=== PATIENT | female | born 1955 | race Caucasian/White ===

== ENCOUNTER 2020-09-28 10:53 | Emergency (ER) | payer MEDICARE, OTHER ==
[~2020-09-28] VITALS: Ht 165.1 cm; Wt 67.6 kg
[2020-09-28] MEDS ORDERED: METFORMIN HCL500 M2 PO (11:11)
[2020-09-28] MEDS ORDERED: SIMVASTATIN10 MG PO (11:12)
[2020-09-28] MEDS ORDERED: ESCITALOPRAM OXA5 MG PO (11:12)
[2020-09-28] MEDS ORDERED: PREDNISONE20 MG PO (14:07)
== END 2020-09-28 14:26 | disposition home or self-care (01) ==
LOC: ED 10:53
DX: J44.1 Chronic obstructive pulmonary disease with (acute) exacerbation (principal); E78.00 Pure hypercholesterolemia, unspecified; F17.200 Nicotine dependence, unspecified, uncomplicated; Z79.899 Other long term (current) drug therapy; Z79.84 Long term (current) use of oral hypoglycemic drugs; Z20.822 Contact with and (suspected) exposure to COVID-19
CPT/HCPCS: 71045; 80053; 83735; 84484; 85025; 93005; 93010; 94640; 96374; 99285-25; C9803; J1100; U0003

== ENCOUNTER 2021-07-17 22:48 | Emergency (ER) | payer MEDICARE, OTHER ==
[~2021-07-17] VITALS: Ht 165.1 cm; Wt 67.6 kg
[~2021-07-17 22:48] MED LIST: ESCITALOPRAM OXA5 MG PO; METFORMIN HCL500 M2 PO; PREDNISONE20 MG PO; SIMVASTATIN10 MG PO
--- OUTSIDE RECORDS SUMMARY | 2021-07-17 22:50 | XMS ---
PreManage Notification: BILLY HOWELL Security Actuarial Director Events No recent Security Events currently on file CRITERIA MET - [facility] Physician Hand Edger 01/09/2015-Current PHONE: Unknown Pavel has no Care Guidelines for this patient. Blaze VISIT COUNT (12 MO.) 2 [facility] TOTAL 2 NOTE: Visits indicate total known visits. ED/UCC VISIT TRACKING (12 MO.) 07/17/2021 22:49 [facility] [place] TYPE: Emergency COMPLAINT: - SOB,COLD SYMPTOMS, COUGH 09/28/2020 10:[address] [facility] [place] TYPE: Emergency COMPLAINT: - SOB, CONGESTION DIAGNOSES: - Chronic obstructive pulmonary disease with (acute) exacerbation - Other technician terminal and repeater (current) drug therapy - Shortness of breath - Pure hypercholesterolemia, unspecified - intermediate school teacher (current) use of oral hypoglycemic drugs - Nicotine dependence, unspecified, uncomplicated INPATIENT VISIT TRACKING (12 MO.) No inpatient visits to display in this time frame [email or web address]
== END 2021-07-18 00:04 | disposition home or self-care (01) ==
LOC: ED 22:48
DX: J44.1 Chronic obstructive pulmonary disease with (acute) exacerbation (principal); E78.00 Pure hypercholesterolemia, unspecified; F17.200 Nicotine dependence, unspecified, uncomplicated; Z79.84 Long term (current) use of oral hypoglycemic drugs; Z79.899 Other long term (current) drug therapy; Z79.52 Long term (current) use of systemic steroids; Z20.822 Contact with and (suspected) exposure to COVID-19
CPT/HCPCS: 71046; 87502; 99283-25; C9803; U0003

== ENCOUNTER 2022-02-08 12:54 | Emergency (ER) | payer MEDICARE, OTHER ==
[~2022-02-08] VITALS: Ht 165.1 cm; Wt 67.6 kg
--- OUTSIDE RECORDS SUMMARY | 2022-02-08 12:58 | XMS ---
PreManage Notification: BILLY HOWELL Security Financial Services Internship Events No recent Security Events currently on file CRITERIA MET - [place] [facility] Physician Caseworker Protective Services 01/09/2015-Current PHONE: Unknown Pavel has no Care Guidelines for this patient. ECodey VISIT COUNT (12 MO.) [address] [facility] [facility] TOTAL 3 NOTE: Visits indicate total known visits. ED/UCC VISIT TRACKING (12 MO.) 02/08/2022 12:55 [facility] [place] TYPE: Emergency COMPLAINT: - LOW O2 10/19/2021 13:52 [facility] [place] TYPE: Emergency DIAGNOSES: - Hypoxemia - Emphysema, unspecified - fall - Anterior dislocation of right humerus, initial encounter 07/17/2021 22:49 [facility] [place] TYPE: Emergency COMPLAINT: - SOB,COLD SYMPTOMS, COUGH DIAGNOSES: - Nicotine dependence, unspecified, uncomplicated - Contact with and (suspected) exposure to COVID-19 - Pure hypercholesterolemia, unspecified - price checker (current) use of oral hypoglycemic drugs - Chronic obstructive pulmonary disease with (acute) exacerbation - Cough, unspecified - intermediate (current) use of systemic steroids - Other chief cruiser (current) drug therapy INPATIENT VISIT TRACKING (12 MO.) No inpatient visits to display in this time frame [email or web address]
[2022-02-08] MEDS ORDERED: LISINOPRIL10 MG PO (15:06)
[2022-02-08] MEDS ORDERED: VENTOLIN HFA18 GM INH (15:06)
[2022-02-08] MEDS ORDERED: PREDNISONE20 MG PO (16:10)
== END 2022-02-08 16:31 | disposition home or self-care (01) ==
LOC: ED 12:54
DX: J44.1 Chronic obstructive pulmonary disease with (acute) exacerbation (principal); J10.1 Influenza due to other identified influenza virus with other respiratory manifestations; R73.03 Prediabetes; F17.200 Nicotine dependence, unspecified, uncomplicated; Z20.822 Contact with and (suspected) exposure to COVID-19; Z79.899 Other long term (current) drug therapy; Z79.84 Long term (current) use of oral hypoglycemic drugs
CPT/HCPCS: 71046; 87502; 94640; 99285-25; A9270; J7512; U0003

== ENCOUNTER 2022-10-21 13:23 | Emergency (ER) | payer MEDICARE, OTHER ==
[~2022-10-21] VITALS: Ht 165.1 cm; Wt 67.6 kg
[~2022-10-21 13:23] MED LIST changes: +LISINOPRIL10 MG PO; +VENTOLIN HFA18 GM INH
--- OUTSIDE RECORDS SUMMARY | 2022-10-21 13:26 | XMS ---
PreManage Notification: BILLY HOWELL Security Agricultural Extension Specialist Events No recent Security Events currently on file CRITERIA MET - [facility] Physician Mold Cleaning And Storage Supervisor 01/09/2015-Current PHONE: Unknown Pavel has no Care Guidelines for this patient. Blaze VISIT COUNT (12 MO.) 2 [facility] TOTAL 2 NOTE: Visits indicate total known visits. ED/UCC VISIT TRACKING (12 MO.) 10/21/2022 13:[address] [facility] [place] TYPE: Emergency COMPLAINT: - ABD PAIN, NAUSEA, DIARRHEA, UNABLE TO EAT 02/08/2022 12:[address] [facility] [place] TYPE: Emergency COMPLAINT: - LOW O2 DIAGNOSES: - Chronic obstructive pulmonary disease with (acute) exacerbation - Contact with and (suspected) exposure to COVID-19 - Cough, unspecified - Influenza due to other identified influenza virus with other respiratory manifestations - long term care phlebotomist (current) use of oral hypoglycemic drugs - Nicotine dependence, unspecified, uncomplicated - Other group home (current) drug therapy - Prediabetes INPATIENT VISIT TRACKING (12 MO.) No inpatient visits to display in this time frame [email or web address]
[2022-10-21 13:54] LABS: BASOPHILS 0.5 % (0-2); EOSINOPHILS 0.7 % (0-6); HEMATOCRIT 42.9 % (35.0-50.0); HEMOGLOBIN 14.8 g/dL (12.0-18.0); LYMPHOCYTES 27.2 % (24-44); MCH 30.8 (27-36); MCHC 34.5 g/dl (30-36); MCV 89.3 fl (81-99); MONOCYTES 4.6 % (0-12); PLATELET COUNT 222 K/uL (140-440); RBC 4.81 M/ul (4.3-5.7); RDW 13.5 (10.5-15.0)
[2022-10-21 14:05] LABS: ALBUMIN 3.7 g/dL (3.4-5.0); ALBUMIN/GLOBULIN RATIO 1.16 (1.1-2.4); ANION GAP 13.8 (7-21); BILIRUBIN, TOTAL 0.4 ng/dL (0.2-1.0); BUN/CREATININE RATIO 7.14 (6.0-28.6); CALCIUM 8.5 mg/dL (8.5-10.1); CREATININE, SERUM 0.84 mg/dL (0.55-1.02); POTASSIUM 3.8 mmol/L (3.5-5.1); PROTEIN, TOTAL 6.9 g/dL (6.4-8.2)
[2022-10-21 14:16] LABS: BILIRUBIN, URINE NEGATIVE (negative); BLOOD/HGB, URINE NEGATIVE (Negative); KETONE, URINE TRACE (Negative); LEUK ESTERASE, URINE NEGATIVE (negative); NITRITE, URINE NEGATIVE (negative); PH, URINE 5.5 (5-7)
[2022-10-21 14:24] LABS: BACTERIA, URINE RARE /hpf (negative); CASTS, URINE NONE SEEN \\lpf; COLLECTION TYPE, URINE CLEAN CATCH; CRYSTALS, URINE NONE SEEN (0-1+)
[2022-10-21 14:25] LABS: EPITHELIAL CELLS, URINE SQUAMOUS 1+ /lpf (0-1+); REFLEX CULTURE, URINE Yes (No)
[2022-10-21 16:22] VITALS: BP 152/94
== END 2022-10-21 16:22 | disposition home or self-care (01) ==
LOC: ED 13:23
PROVIDERS: Emergency Medicine
DX: N13.2 Hydronephrosis with renal and ureteral calculous obstruction (principal); E78.00 Pure hypercholesterolemia, unspecified; F17.200 Nicotine dependence, unspecified, uncomplicated; Z79.52 Long term (current) use of systemic steroids; R73.03 Prediabetes; Z79.84 Long term (current) use of oral hypoglycemic drugs
CPT/HCPCS: 36415; 74176; 80053; 81001; 83690; 85025; 87088; 96374; 99284-25; J2405

== ENCOUNTER 2022-10-29 10:54 | Emergency (ER) | payer MEDICARE, OTHER ==
[~2022-10-29] VITALS: Ht 165.1 cm; Wt 68.0 kg
[~2022-10-29 10:54] MED LIST changes: +HYDROCODON-ACE1 EA10 PO; +ONDANSETRON ODT4 MG PO
--- OUTSIDE RECORDS SUMMARY | 2022-10-29 10:56 | XMS ---
PreManage Notification: BILLY HOWELL Security Decorator Consultant Events No recent Security Events currently on file CRITERIA MET - [facility] - 2 Visits in 30 Days [facility] Physician Project Estimator 01/09/2015-Current PHONE: Unknown Pavel has no Care Guidelines for this patient. ECodey VISIT COUNT (12 MO.) [address] [place] [address] TOTAL 4 NOTE: Visits indicate total known visits. ED/UCC VISIT TRACKING (12 MO.) 10/29/2022 10:[address] [facility] [place] TYPE: Emergency COMPLAINT: - CHEST PAIN 10/28/2022 07:[address] [facility] [place] TYPE: Emergency COMPLAINT: - R FLANK PAIN, VOMITING 10/21/2022 13:[address] [facility] [place] TYPE: Emergency COMPLAINT: - ABD PAIN, NAUSEA, DIARRHEA, UNABLE TO EAT DIAGNOSES: - Hydronephrosis with renal and ureteral calculous obstruction - predatory animal exterminator (current) use of oral hypoglycemic drugs - predatory animal exterminator (current) use of systemic steroids - Nausea with vomiting, unspecified - Nicotine dependence, unspecified, uncomplicated - Prediabetes - Pure hypercholesterolemia, unspecified 02/08/2022 12:[address] [facility] [place] TYPE: Emergency COMPLAINT: - LOW O2 DIAGNOSES: - Chronic obstructive pulmonary disease with (acute) exacerbation - Contact with and (suspected) exposure to COVID-19 - Cough, unspecified - Influenza due to other identified influenza virus with other respiratory manifestations - [facility]PC (current) use of oral hypoglycemic drugs - Nicotine dependence, unspecified, uncomplicated - Other rodent exterminator (current) drug therapy - Prediabetes INPATIENT VISIT TRACKING (12 MO.) No inpatient visits to display in this time frame [email or web address]
[2022-10-29 11:37] LABS: BASOPHILS 0.3 % (0-2); EOSINOPHILS 0.4 % (0-6); HEMATOCRIT 37.6 % (35.0-50.0); HEMOGLOBIN 12.8 g/dL (12.0-18.0); LYMPHOCYTES 14.1 % (24-44); MCH 30.4 (27-36); MCV 89.2 fl (81-99); MONOCYTES 4.5 % (0-12); NEUTROPHILS 80.7 % (39-80); PLATELET COUNT 223 K/uL (140-440); RBC 4.22 M/ul (4.3-5.7)
[2022-10-29 11:54] LABS: ALBUMIN 3.3 g/dL (3.4-5.0); ALBUMIN/GLOBULIN RATIO 1.18 (1.1-2.4); ANION GAP 9.7 (7-21); BILIRUBIN, TOTAL 0.4 ng/dL (0.2-1.0); BUN/CREATININE RATIO 12.79 (6.0-28.6); CALCIUM 8.4 mg/dL (8.5-10.1); CREATININE, SERUM 0.86 mg/dL (0.55-1.02); POTASSIUM 3.7 mmol/L (3.5-5.1); PROTEIN, TOTAL 6.1 g/dL (6.4-8.2)
[2022-10-29 12:00] LABS: INFLUENZA B NAA NEGATIVE (NEGATIVE); RESPIRATORY SYNCYTIAL VIR NAA NEGATIVE (NEGATIVE)
[2022-10-29 16:51] VITALS: BP 134/55
== END 2022-10-29 16:45 | disposition short-term general hospital (02) ==
LOC: ED 10:54
PROVIDERS: Emergency Medicine
DX: I21.4 Non-ST elevation (NSTEMI) myocardial infarction (principal); Z20.822 Contact with and (suspected) exposure to COVID-19; N20.1 Calculus of ureter; E78.00 Pure hypercholesterolemia, unspecified; F17.200 Nicotine dependence, unspecified, uncomplicated; Z79.899 Other long term (current) drug therapy; Z79.84 Long term (current) use of oral hypoglycemic drugs
CPT/HCPCS: 36415; 80053; 84484; 85025; 87502; 96374; 96375; 99285-25; 99406; A9270; C9803; J1170; J2405; U0002

== ENCOUNTER 2022-11-30 05:42 | Day surgery (SDC) | payer MEDICARE, OTHER ==
[~2022-11-30] VITALS: Ht 165.1 cm; Wt 68.0 kg
[2022-11-30] VITALS (13 sets, daily range): BP systolic 154–207; BP diastolic 50–78
[2022-11-30 07:07] LABS: BASOPHILS 0.8 % (0-2); EOSINOPHILS 2.8 % (0-6); HEMATOCRIT 40.3 % (35.0-50.0); HEMOGLOBIN 13.5 g/dL (12.0-18.0); LYMPHOCYTES 46.5 % (24-44); MCH 29.9 (27-36); MCHC 33.5 g/dl (30-36); MCV 89.2 fl (81-99); MONOCYTES 7.6 % (0-12); NEUTROPHILS 42.3 % (39-80); PLATELET COUNT 203 K/uL (140-440); RBC 4.51 M/ul (4.3-5.7); RDW 12.9 (10.5-15.0)
[2022-11-30 07:19] LABS: ALBUMIN 3.6 g/dL (3.4-5.0); ALBUMIN/GLOBULIN RATIO 1.2 (1.1-2.4); ANION GAP 12.2 (7-21); BILIRUBIN, TOTAL 0.5 ng/dL (0.2-1.0); BUN/CREATININE RATIO 18.05 (6.0-28.6); CALCIUM 9.1 mg/dL (8.5-10.1); CREATININE, SERUM 0.72 mg/dL (0.55-1.02); POTASSIUM 4.2 mmol/L (3.5-5.1); PROTEIN, TOTAL 6.6 g/dL (6.4-8.2)
--- NOTE | 2022-11-30 07:49 | NUR ---
EXERCISED MINISTRY OF PRESENCE PT TALKED OF PAST HEALTH SCARES AND RECENT TRAVEL. GAVE ASSURANCE. PRAYED FOR SUCCESSFUL PROCEDURE AND ONGOING BLESSING.
--- NOTE | 2022-11-30 09:11 | NUR ---
11/30/22 0911 Karena Gomez 0817 PT ARRIVED IN PACU NON RESPONSIVE TO NOXIOUS STIMULI WITH OPA IN PLACE. CHIN LIFT HELD BY RN. 0845 STENT TAPED TO PT'S ABD. 0850 BLOOD SUGAR 160. NO NEW ORDERS. 0859 PT REACTIVE. OPA REMOVED. 0905 OXYGEN REMOVED. PT TALKING TO STAFF. 0910 C/O URGE TO VOID. SITTING ON BEDPAN.
--- NOTE | 2022-11-30 09:51 | NUR ---
0940: PT RETURNS TO UNIT VIA STRETCHER FROM PACU. DROWSY ON ARRIVAL BUT ANSWERS QUESTIONS APPROPRIATELY AND FOLLOWS COMMANDS. ELEVATED BP ON ARRIVAL. CONCURRENT WITH PACU TREND AND PROVIDER AWARE. BED TORRES IN PLACE REQUESTED. BLADDER SPASMS DISCUSSED. PT REPORTS SY PAIN LEVEL, 6/10 AND REPORTS RESOLVED NAUSEA. ICE WATER AND CRACKERS PROVIDED. PT COMFORTABLE WITHOUT FURTHER NEEDS, CALL LIGHT WITHIN REACH
--- NOTE | 2022-11-30 11:07 | NUR ---
1040: MD JAIME AT THE BEDSIDE TO DISCUSS POC WITH PT. PT BEGINS TO FEEL NAUSEOUS AND HAS SMALL AMOUNT OF YELLOW EMESIS. NEW ORDER RECEIVED FOR 25MG PHENERGAN SUPPOSITORY ONCE NOW. BP REMAINS ELEVATED AT THIS TIME WELL. NEW ORDER RECEIVED FOR 20MG LABETALOL IV ONCE NOW. BED TORRES REMOVED AND EXCHANGED FOR MESH PANTIES AND PAD. SUCCESSFUL FIRST POSTOP VOID.
--- NOTE | 2022-11-30 11:33 | NUR ---
1100: PT WITH C/O INCREASING PAIN LEVEL. 11/01. IV RX ADMINISTERED ORDERED. 1120: BP REMAINS ELEVATED AFTER FIRST DOSE OF LABETALOL. VERBAL ORDER RECEIVED FROM MARIANNA MCKEON TO ADMINISTER ANOTHER 20MG LABETALOL IV FOR SYSTOLIC >180 1132: PRE RX BP ELEVATED AND WITHIN RX ADMIN CRITERIA. RX ADMINISTERED ORDERED. PT REPORTS IMPROVING PAIN LEVEL AT THIS TIME. DOZES INTERMITTENTLY
--- NOTE | 2022-11-30 13:57 | NUR ---
1245: PT WITH NAUSEA AND DRY HEAVING. COOL WASHCLOTH PLACED ON FOREHEAD AND ALCHOHOL WIPE GIVEN. BP ELEVATED, REMAINING VSS. DISCUSSED WITH MD JAIME AND MARIANNA JEFF. NEW ORDER RECEIVED FOR 0.5MG HALDOL IV. PHARMACY NOTIFIED. PT WITH URGE TO VOID. DANGLED AT THE BEDSIDE ONCE BOUT OF NAUSEA PASSES. SY WELL, DENIES DIZZINESS. AMBULATES TO BR WITH STANDBY FROM THIS RN. STEADY GAIT. SUCCESSFUL POSTOP VOID, 125MLS. BACK TO ROOM 5. HALDOL RECEIVED FROM PHARMACY AND ADMISTERED ORDERED. 1330: VSS, RESP EVEN AND UNLABORED. NO NEEDS, CALL LIGHT WITHIN REACH. FAMILY LEAVES THE UNIT AND PT TO TRY AND REST AT THIS TIME. LIGHTS DIMMED FOR COMFORT AND WARM BLANKETS PROVIDED
--- NOTE | 2022-11-30 14:52 | NUR ---
1440: THIS RN AND MARIANNA JEFF AT THE BEDSIDE. BP REMAINS ELEVATED AT THIS TIME. VERBAL ORDER RECEIVED TO ADMINISTER 5MG HYDRALIZINE IV ONCE. PHARMACY NOTIFIED. PT REPORTS RESOLVED NAUSEA AND SY PAIN LEVEL, 08/01. HYDRALIZINE ADMINISTERED ORDERED. BP 166/64 AFTER ADMIN. PT FEELING URGE TO VOID. DANGLED AT THE BEDSIDE, SY WELL. AMBULATES TO BR. BACK TO ROOM 5. NO NEEDS VOICED AT THIS TIME. CALL LIGHT WITHIN REACH
--- NOTE | 2022-11-30 15:39 | NUR ---
1530: PT RESTS COMFORTABLY WITH EYES CLOSED. WAKES WHEN THIS RN WALKS IN. VS RECHECKED AND BP ELEVATED. TC PLACED TO MD JAIME. PT SAFE TO DC TODAY AND TAKE BP RX THIS EVENING ORIGINALLY SCHED. PT TO FOLLOW UP WITH PCP PER MD JAIME
--- NOTE | 2022-11-30 15:47 | NUR ---
1545: POC DISCUSSED WITH PT AND PT AGREEABLE. TO DRESS INDEPENDENTLY FOR DC. DAUGHTER CONTACTED FOR DC
--- NOTE | 2022-11-30 16:11 | NUR ---
1550: SL REMOVED WITH CATH TIP INTACT AND PRESSURE APPLIED TO SITE, WNL. DC INSTRUCTIONS PROVIDED AND DISCUSSED. PT VOICES UNDERSTANDING AND DENIES QUESTIONS AND CONCERNS AT THIS TIME. 1600: WHEELED OFF OF UNIT BY THIS RN. TRANSFERS INTO VEHICLE INDEPENDENTLY AND APPROPRIATELY. NO PHYSICAL S/S OF DISTRESS AT THIS TIME
--- NOTE | 2022-11-30 17:39 | EKG ---
[facility] [address] [facility] [address] [facility] [place] [address] Signed Normal sinus rhythm Nonspecific T wave abnormality Abnormal ECG When compared with ECG of 29-OCT-2022 10:41, Nonspecific T wave abnormality has replaced inverted T waves in Inferior leads Nonspecific T wave abnormality has replaced inverted T waves in Lateral leads QT has shortened Confirmed by SUPRIYA PATINO MD ([id number]) on 11/30/2022 5:39:30 PM Electronically Signed By: SUPRIYA PATINO 11/30/22 1739 PATIENT NAME: BILLY HOWELL Electrocardiogram DATE OF : 51 PHYSICIAN: SUPRIYA PATINO REPORT #: [id number] REPORT IS CONFIDENTIAL AND NOT TO BE RELEASED WITHOUT AUTHORIZATION
--- NOTE | 2022-12-01 18:12 | OR ---
[facility] [address] [place], [place] [address] Signed DATE OF OPERATION: 11/30/2022 SURGEON: Suleman Sandoval MD PREOPERATIVE DIAGNOSES: 1. 9 mm right ureteropelvic junction calculus. 2. Intermittent right-sided flank pain. POSTOPERATIVE DIAGNOSES: 1. 9 mm calculus present within a mid pole calyceal diverticulum. 2. Right infundibular stenosis. 3. Urethral stenosis. NAMES OF PROCEDURES: 1. Urethral dilation using straight sounds, from 18-[place] to 28-[place]. 2. Diagnostic right nephroureteroscopy. 3. Right retrograde pyelogram. 4. Insertion of a 5 x 24 cm double-J ureteral stent into the right collecting system. ANESTHESIA: General. ESTIMATED BLOOD LOSS: None. COMPLICATIONS: None. SPECIMENS: None. DRAINS: A 5 x 24 cm double-J ureteral stent inserted into the right collecting system. INDICATIONS FOR PROCEDURE: Ms. Menendez is a very pleasant 67-year-old female, who presented to the emergency department last month with complaints of severe right-sided flank pain, nausea and vomiting. She underwent a CT scan, which revealed 9 mm stone present within the right UPJ with associated perinephric stranding. She was seen in my clinic not long after at which point we did schedule elective right ureteroscopy with laser lithotripsy and Electronically Signed By: SULEMAN SANDOVAL MD 12/01/221811 PATIENT NAME: BILLY MENENDEZ OPERATIVE REPORT DATE OF : 51 REPORT #: [id number] PHYSICIAN: SULEMAN SANDOVAL MD PCP: AKOSUA GAINES REPORT IS CONFIDENTIAL AND NOT TO BE RELEASED WITHOUT AUTHORIZATION [facility] [address] [place], [place] [address] Signed basket extraction of stone fragments. On the day of her procedure, she developed flank pain and did experience a significant elevation in her troponin. The case was canceled and she was sent for cardiac evaluation, which ended up being negative. Her pain has since subsided to the point where she actually went on a previously planned [place] cruise. She reports today that she has not had any significant right flank pain recently and overall feels well. I reiterated the risks and benefits of today's procedure with her today and she has agreed to proceed. OPERATIVE FINDINGS: 1. On cystoscopy, there was no evidence of any suspicious masses, lesions, or stones. Bilateral ureteral orifices are noted to be in their normal anatomic location. 2. Visual inspection of the external genitalia reveals a normal introitus. However, I do note mild urethral stenosis. I chose to dilate her urethra prior to inserting the 24-[place] sheath into her bladder. Her urethra was dilated from 18-[place]an to 28-[place] without incident. 3. Right retrograde pyelogram reveals obvious filling defects within the mid pole of the right kidney. The stone appears to have smooth arthur. No other significant stones are noted on the retrograde pyelogram. Her ureters were widely patent and without filling defects. 4. Right-sided flexible nephroscopy reveals a very patent and obvious upper pole renal calyx. However, I am unable to locate the mid pole right renal calyx. I performed multiple right retrograde pyelograms and was able to appreciate stenosis of the right mid pole infundibulum and I was able to appreciate that the 9 mm calculus is sitting within a calyceal diverticulum. After a solid 20 minutes of looking for the ostia of the infundibulum, I was unable to locate it. I do appreciate a very small channel present on retrograde that does connect the renal pelvis to the mid pole calyx. Again after searching for the ostia, I am unable to visualize it. Otherwise, right renal pelvis as a whole is not currently dilated. 5. A 5 x 24 cm double-J ureteral stent was inserted into the right upper pole renal calyx under direct visualization without difficulty. DESCRIPTION OF PROCEDURE: After informed consent was obtained, the patient was taken back to the operating room. She was transferred from the [facility] to the operating room table, where general anesthesia was induced. She was placed in the dorsal lithotomy position and her genitalia were prepped and draped in a standard sterile fashion. I did appreciate some mild urethral stenosis, so I used Mickie sounds to dilate the patient's urethral meatus from 18-[place] to 28-[place] without difficulty. I then inserted a semi-rigid cystoscope with a 22.5 [place] introducer. Diagnostic cystoscopy was performed. Please see above findings. I then advanced a cone-tipped catheter into the distal right ureteral orifice and a right retrograde pyelogram was performed. Please see above findings. I then passed a 0.035 Sensor wire through the right ureteral orifice and up Electronically Signed By: SULEMAN SANDOVAL MD 12/01/221811 PATIENT NAME: BILLY MENENDEZ OPERATIVE REPORT DATE OF : 51 REPORT #: [id number] PHYSICIAN: SULEMAN SANDOVAL MD PCP: AKOSUA GAINES REPORT IS CONFIDENTIAL AND NOT TO BE RELEASED WITHOUT AUTHORIZATION [address] [address] Signed into the collecting system. Proper placement of the wire was confirmed on fluoroscopy. Over the wire, I passed a 13/15 ureteral access sheath into the right collecting system under direct visualization. I confirmed placement of the sheath via repeat retrograde pyelogram. The flexible ureteroscope was advanced through the sheath and into the right proximal ureter and right renal pelvis. Her anatomy is atypical and that she has a very narrow right renal pelvis and a prominent right upper pole calyx. Again, I am unable to appreciate the ostia or opening to the mid pole infundibulum. Please see above findings. After about a solid 20 minutes of searching for the opening to the infundibulum, I chose to abort this portion of the procedure. I took multiple pictures of the system using retrograde pyelogram so that a future endourologist could appreciate her anatomy. I withdrew the ureteroscope, leaving the sheath behind. I passed a 0.035 Sensor wire through the sheath and into the upper pole calyx. This was confirmed on fluoroscopy. The ureteral access sheath was then removed fully intact. Over the wire, I passed a 5 x 24 cm double-J ureteral stent into the right upper pole calyx. Once I pulled the wire, an adequate coil was noted on fluoroscopy. An adequate distal coil was noted on cystoscopy. The patient's bladder was then drained and cystoscope was removed. The stent was deployed with a string attached. The string was secured to her mons pubis. The procedure was then terminated. The patient tolerated the procedure well without any complication. She will now be transferred to the postanesthesia care unit in stable condition. DISPOSITION: I discussed the details of today's procedure with the patient and answered all of her questions. I attempted to call her granddaughter, Tyrel Ingram, however, she did not answer her cellphone. The patient will need to be referred to a subspecialist called an endourologist. The referral will likely be placed to [facility] End[facility] once this is confirmed with the patient. She will otherwise be sent home with oral antibiotics for five days as well as oxycodone as needed for pain control. She has been instructed to remove her indwelling ureteral stent using the string attached on the 07 of December. She will return to clinic to see me in approximately one month for urine check and to be sure she is on the right track to have her complicated 9 mm right renal calculus extracted. Suleman Sandoval MD AR/MODL /[id number] Electronically Signed By: SULEMAN SANDOVAL MD 12/01/221811 PATIENT NAME: BILLY MENENDEZ OPERATIVE REPORT DATE OF : 51 REPORT #: [id number] PHYSICIAN: SULEMAN SANDOVAL MD PCP: AKOSUA GAINES REPORT IS CONFIDENTIAL AND NOT TO BE RELEASED WITHOUT AUTHORIZATION [facility] [address] [facility] [place], [place] [address] Signed Copies: ~ Electronically Signed By: SULEMAN SANDOVAL MD 12/01/221811 PATIENT NAME: BILLY MENENDEZ OPERATIVE REPORT DATE OF : 51 REPORT #: [id number] PHYSICIAN: SULEMAN SANDOVAL MD PCP: AKOSUA GAINES REPORT IS CONFIDENTIAL AND NOT TO BE RELEASED WITHOUT AUTHORIZATION
== END 2022-11-30 16:00 | disposition home or self-care (01) ==
LOC: DS 05:42
PROVIDERS: Registered Nurse; ATTEND Urology
PROC: 0T768DZ Dilation of Right Ureter with Intraluminal Device, Via Natural or Artificial Opening Endoscopic (ICD-10-PCS; principal; 2022-11-30 07:30)
DX: N35.92 Unspecified urethral stricture, female (principal); N20.1 Calculus of ureter; E11.9 Type 2 diabetes mellitus without complications; I10 Essential (primary) hypertension; E78.5 Hyperlipidemia, unspecified; Z79.84 Long term (current) use of oral hypoglycemic drugs; F32.9 Major depressive disorder, single episode, unspecified; Z87.891 Personal history of nicotine dependence
CPT/HCPCS: 00910; 36415; 74420; 80053; 85025; 93005; 93010; C1769; C2617; J0360; J0690; J1100; J1630; J1885; J2250; J2405; J2704; J3010; J7121; Q9967

== ENCOUNTER 2023-02-08 17:29 | Emergency (ER) | payer MEDICARE, OTHER ==
[~2023-02-08] VITALS: Ht 165.1 cm; Wt 68.0 kg
--- OUTSIDE RECORDS SUMMARY | ~2023-02-08 | XMS | Continuity of Care Document ---
Demographics + + + | Address | [address] | | | [place] [address] | + + + | Preferred Language | Unknown | + + + | Marital Status | Never | + + + | Adventism Affiliation | Unknown | + + + | Race | White | + + + | Ethnic Group | Not or | + + + Author + + + | Author | [facility] | + + + | Organization | [facility] | + + + | Address | [address] | | | [place] [address] | + + + | Phone | | + + + Care Team Providers + + + + | Care Broadcast Supervisor Name | Role | Phone | + + + + Unavailable | Unavailable | + + + + Allergies No information. Encounters No information. Functional Status No information. Immunizations No information. Medications No information. Problems + + + + | date | description | facility | + + + + | 2022-12-30 13:35:20 | Type 2 diabetes mellitus | [facility] | | | without complications | Medicine | + + + + | 2022-12-30 13:35:20 | Mixed hyperlipidemia | [facility] | | | | Medicine | + + + + | 2022-12-30 13:35:20 | Depression, unspecified | [facility] | | | | Medicine | + + + + | 2022-12-30 13:35:20 | Dysthymic disorder | [facility] | | | | Medicine | + + + + | 2022-12-30 13:35:20 | Anxiety disorder, | [facility] | | | unspecified | Medicine | + + + + | 2022-12-30 13:35:20 | Essential (primary) | [facility] | | | hypertension | Medicine | + + + + | 2022-12-30 13:35:20 | Chronic obstructive | [facility] | | | pulmonary disease, | Medicine | | | unspecified | | + + + + | 2022-12-30 13:35:20 | Dysuria | [facility] | | | | Medicine | + + + + Procedures No information. Results/Labs No information. Social History +--------+ + + | date | description | facility | +--------+ + + Vital Signs No information."
[2023-02-08 18:04] LABS: BASOPHILS 0.7 % (0-2); EOSINOPHILS 0.6 % (0-6); HEMATOCRIT 38.5 % (35.0-50.0); HEMOGLOBIN 13.1 g/dL (12.0-18.0); MCH 30.4 (27-36); MCHC 34.1 g/dl (30-36); MCV 89.2 fl (81-99); MONOCYTES 4.7 % (0-12); PLATELET COUNT 237 K/uL (140-440); RBC 4.31 M/ul (4.3-5.7); RDW 13.4 (10.5-15.0)
[2023-02-08 18:16] LABS: ALBUMIN 3.9 g/dL (3.4-5.0); ALBUMIN/GLOBULIN RATIO 1.34 (1.1-2.4); ANION GAP 12.4 (7-21); BILIRUBIN, TOTAL 0.3 ng/dL (0.2-1.0); BUN/CREATININE RATIO 18.47 (6.0-28.6); CALCIUM 8.7 mg/dL (8.5-10.1); CREATININE, SERUM 0.92 mg/dL (0.55-1.02); POTASSIUM 4.4 mmol/L (3.5-5.1); PROTEIN, TOTAL 6.8 g/dL (6.4-8.2)
[2023-02-08 19:34] LABS: BILIRUBIN, URINE NEGATIVE (negative); BLOOD/HGB, URINE SMALL (Negative); KETONE, URINE TRACE (Negative); LEUK ESTERASE, URINE SMALL (negative); NITRITE, URINE NEGATIVE (negative)
[2023-02-08 19:46] LABS: BACTERIA, URINE RARE /hpf (negative); CASTS, URINE NONE SEEN \\lpf; CRYSTALS, URINE NONE SEEN (0-1+); EPITHELIAL CELLS, URINE SQUAMOUS 1+ /lpf (0-1+); WHITE BLOOD CELLS, URINE 21-40 /HPF (0-5)
[2023-02-08 19:47] LABS: COLLECTION TYPE, URINE CLEAN CATCH; REFLEX CULTURE, URINE Yes (No)
[2023-02-08] MEDS ORDERED: LEVOFLOXACIN500 MG PO (20:34)
[2023-02-08] MEDS ORDERED: ONDANSETRON ODT8 MG PO (20:34)
[2023-02-08] MEDS ORDERED: HYDROCODON-ACE1 EA10 PO (20:34)
[2023-02-08 21:28] VITALS: BP 136/65
== END 2023-02-08 21:28 | disposition home or self-care (01) ==
LOC: ED 17:29
PROVIDERS: Emergency Medicine
DX: N13.6 Pyonephrosis (principal); F17.200 Nicotine dependence, unspecified, uncomplicated; R73.03 Prediabetes; Z79.899 Other long term (current) drug therapy; Z79.84 Long term (current) use of oral hypoglycemic drugs
CPT/HCPCS: 36415; 74176; 80053; 81001; 85025; A9270; J0696; J1885; J2405

== ENCOUNTER 2024-02-18 16:14 | Emergency (ER) | payer OTHER, MEDICARE ==
[~2024-02-18] VITALS: Ht 165.1 cm; Wt 75.7 kg
--- OUTSIDE RECORDS SUMMARY | ~2024-02-18 | XMS | Continuity of Care Document ---
Demographics + + + | Address | [address] | | | [place] [address] | + + + | Preferred Language | Unknown | + + + | Marital Status | Never | + + + | Voodoo Affiliation | Unknown | + + + | Race | White | + + + | Ethnic Group | Not or | + + + Author + + + | Author | [facility] | + + + | Organization | [facility] | + + + | Address | [address] | | | [place] [address] | + + + | Phone | | + + + Care Team Providers + + + + | Care Counter Caser Name | Role | Phone | + + + + Unavailable | Unavailable | + + + + Allergies No information. Encounters No information. Functional Status No information. Immunizations No information. Medications No information. Problems + + + + | date | description | facility | + + + + | 2023-12-14 10:43:42 | Type 2 diabetes mellitus | [facility] | | | without complications | [facility] | + + + + | 2023-12-14 10:43:42 | Mixed hyperlipidemia | [facility] | | | | [facility] | + + + + | 2023-12-14 10:43:42 | Depression, unspecified | [facility] | | | | [facility] | + + + + | 2023-12-14 10:43:42 | Anxiety disorder, | [facility] | | | unspecified | [facility] | + + + + | 2023-12-14 10:43:42 | Essential (primary) | [facility] | | | hypertension | [facility] | + + + + | 2023-12-14 10:43:42 | Epigastric swelling, mass | [facility] | | | or lump | [facility] | + + + + | 2023-12-28 00:00 | Post-traumatic stress | [facility] | | | disorder, unspecified | [facility] | + + + + | 2023-12-28 09:45:19 | Post-traumatic stress | [facility] | | | disorder, unspecified | [facility] | + + + + Procedures No information. Results/Labs No information. Social History +--------+ + + | date | description | facility | +--------+ + + Vital Signs No information."
[~2024-02-18 16:14] MED LIST changes: +LEVOFLOXACIN500 MG PO; +ONDANSETRON ODT8 MG PO
[2024-02-18] MEDS ORDERED: AMLODIPINE BES2.5 MG PO (17:13)
[2024-02-18] MEDS ORDERED: ESCITALOPRAM OX10 MG PO (17:14)
[2024-02-18] MEDS ORDERED: ASPIRIN REGIMEN81 MG PO (17:14)
[2024-02-18] MEDS ORDERED: MIRABEGRON ER50 MG PO (17:14)
[2024-02-18] MEDS ORDERED: LOSARTAN POTASS50 MG PO (17:14)
[2024-02-18] MEDS ORDERED: RYBELSUS3 MG PO (17:15)
[2024-02-18] MEDS ORDERED: ROSUVASTATIN CA10 MG PO (17:16)
[2024-02-18] MEDS ORDERED: HYDROCODONE/ACETA 5/325 TAB PO ONE (19:15)
[2024-02-18] MEDS ORDERED: HYDROCODON-ACE1 EA10 PO (20:01)
[2024-02-18] MEDS ORDERED: HYDROCODONE BIT/ACETAMINOPHEN 5/325 MG 1 TAB HOME.PACK PO ONE (20:15)
[2024-02-18 20:45] VITALS: BP 152/63
== END 2024-02-18 20:45 | disposition home or self-care (01) ==
LOC: ED 16:14
DX: S82.124A Nondisplaced fracture of lateral condyle of right tibia, initial encounter for closed fracture (principal); M25.521 Pain in right elbow; W01.0XXA Fall on same level from slipping, tripping and stumbling without subsequent striking against object, initial encounter; R73.03 Prediabetes; F17.200 Nicotine dependence, unspecified, uncomplicated; Z79.899 Other long term (current) drug therapy
CPT/HCPCS: 73080; 73560; 73700; 99284-25; A9270